=== PATIENT | female | born 1950 | race African-American/Black ===

== ENCOUNTER 2022-05-06 13:48 | Emergency (ER) | payer BC ==
[2022-05-06 13:54] VITALS: BP 147/84; PULSE 77; RESP 18; TEMP 98.5; BMI 25.0
[2022-05-06 16:58] LABS: BASO % 0.2 % (0-2.0); HEMATOCRIT 41.5 % (32.4-45.2); HEMOGLOBIN 13.3 GM/dL (10.7-15.3); LYMPH % 44.1 % (8-40); MCH 29.9 pg (25.7-33.7); MCHC 32.1 g/dl (32.0-36.0); MEAN CELL VOLUME 93.4 fl (80-96); MEAN PLT VOLUME 8.7 fl (7.5-11.1); MONO % 7.5 % (3.8-10.2); NEUT % 45.2 % (42.8-82.8); PLATELET COUNT 264 10^3/uL (134-434); RBC 4.44 M/mm3 (3.60-5.2); RDW 16.3 % (11.6-15.6); WHITE BLOOD COUNT 5.6 K/mm3 (4.0-10.0)
[2022-05-06 17:05] LABS: INR 1.04 (0.83-1.09)
[2022-05-06 17:08] LABS: ACTIVATED PTT 38.1 SECONDS (25.2-36.5)
[2022-05-06 17:18] LABS: CALCIUM 10.5 mg/dL (8.5-10.1)
[2022-05-06 17:19] LABS: ALBUMIN 3.8 g/dl (3.4-5.0); BLOOD UREA NITROGEN 15.8 mg/dL (7-18); MAGNESIUM 2.2 mg/dL (1.8-2.4)
[2022-05-06 17:23] LABS: BILIRUBIN,TOTAL 0.9 mg/dL (0.2-1); CREATININE 0.9 mg/dL (0.55-1.3); TOT PROT 7.7 g/dl (6.4-8.2)
== END 2022-05-06 18:50 | disposition left against medical advice (07) ==
LOC: JER 13:48
DX: H53.8 Other visual disturbances (principal); K76.89 Other specified diseases of liver
CPT/HCPCS: 0241U-QW; 36415; 70450-TC; 70486-TC; 72125-TC; 80053; 83735; 85025; 85610; 85730; 86850; 86900; 86901; 99284-25